=== PATIENT | male | born 1935 | race Caucasian/White ===

== ENCOUNTER 2022-03-21 11:21 | Emergency (ER) | payer MEDICARE, BC ==
[~2022-03-21] VITALS: Ht 172.7 cm; Wt 90.9 kg
[2022-03-21] MEDS ORDERED: COLA100C5 PO (11:39)
[2022-03-21] MEDS ORDERED: PLAV1TAB2 PO (11:39)
[2022-03-21] MEDS ORDERED: PROTPAK PO (11:39)
[2022-03-21] MEDS ORDERED: SENN-80 PO (11:39)
[2022-03-21] MEDS ORDERED: METO200T28 PO (11:39)
[2022-03-21] MEDS ORDERED: B-COTAB10 PO (11:39)
[2022-03-21] MEDS ORDERED: ROSU20TA5 PO (11:39)
[2022-03-21] MEDS ORDERED: LIDOCAINE 2% W/EPINEPHRINE 20ML VIAL **PRES FREE INJ ONE (12:10)
[2022-03-21] MEDS ORDERED: CEPHALEXIN 500 MG CAP PO ONE (13:50)
[2022-03-21] MEDS ORDERED: CEPH500C PO (13:52)
[2022-03-21] MEDS ORDERED: BACITRACIN OINTMENT 30GM TUBE TOP STA (14:28)
[2022-03-21] MEDS ORDERED: ACETAMINOPHEN 325 MG TAB PO ONE (14:30)
[2022-03-21 15:02] VITALS: BP 103/63
== END 2022-03-21 15:08 | disposition home or self-care (01) ==
LOC: M ED 11:21
DX: S01.01XA Laceration without foreign body of scalp, initial encounter (principal); S63.614A Unspecified sprain of right ring finger, initial encounter; S80.02XA Contusion of left knee, initial encounter; W01.118A Fall on same level from slipping, tripping and stumbling with subsequent striking against other sharp object, initial encounter; I25.2 Old myocardial infarction; I10 Essential (primary) hypertension; K21.9 Gastro-esophageal reflux disease without esophagitis; E78.5 Hyperlipidemia, unspecified; C61 Malignant neoplasm of prostate; Z79.2 Long term (current) use of antibiotics; Z79.899 Other long term (current) drug therapy; Y92.9 Unspecified place or not applicable; Y99.9 Unspecified external cause status; Y93.9 Activity, unspecified